=== PATIENT | male | born 1955 | race Caucasian/White ===

== ENCOUNTER 2021-01-08 18:57 | Emergency (ER) | payer MEDICARE ==
[~2021-01-08] VITALS: Ht 190.5 cm; Wt 96.2 kg
[~2021-01-08 18:57] MED LIST: IBUPROFEN600 MG PO
[2021-01-08] MEDS ORDERED: ISOSORBIDE MONO30 MG PO (19:14)
== END 2021-01-08 20:26 | disposition home or self-care (01) ==
LOC: ED 18:57
DX: U07.1 COVID-19 (principal); M06.9 Rheumatoid arthritis, unspecified; Z88.8 Allergy status to other drugs, medicaments and biological substances; Z79.899 Other long term (current) drug therapy
CPT/HCPCS: 99283